=== PATIENT | male | born 1970 | race Caucasian/White ===

== ENCOUNTER 2017-03-01 07:27 | Emergency (ER) | payer OTHER ==
[2017-03-01 07:32] VITALS: RESP 16
--- NOTE | 2017-03-01 07:45 | CPEKG ---
Heart Rate: 52 RR Interval: 1154 P-R Interval: 133 QRSD Interval: 98 QT Interval: 428 QTC Interval: 398 P [place]: 75 QRS [place]: 60 T Wave [place]: 56 EKG Severity - NORMAL ECG - EKG Impression: SINUS RHYTHM Electronically Signed By: Derrell rDake 02-Mar-2017 21:55:13
--- NOTE | 2017-03-01 07:52 | EDPHY ---
HPI/HX/ROS/PE/MDM Narrative: CHIEF COMPLAINT: Chest pain HPI: This patient is a 46 year old male complaining of mild chest pain onset around midnight last night. He tossed and turned throughout the night and was unable to sleep well. His discomfort is primarily in the upper left chest. The pain is dull and waxes and wanes. It is increased with deep inspiration. It is not changed with movement. He has never had similar pain in the past. He did yoga yesterday, but otherwise cannot identify any precipitating factors and does not remember straining any of his chest muscles at that time. No personal or immediate family history of CAD or blood clots. He denies shortness of breath, fever, vomiting, abdominal pain, or other associated symptoms. REVIEW OF SYSTEMS: Aside from elements discussed in the HPI, a comprehensive 10-point review of systems was reviewed and is negative. PMH: Denies. SOCIAL HISTORY: Works in [employer]. . PCP Dr. Aquino. PHYSICAL EXAM: General:Patient is alert, in no acute distress. ENT:Eyes are normal to inspection. ENT inspection normal. Neck: Normal inspection. Full range of motion. Respiratory:No respiratory distress. Breath sounds normal bilaterally. Chest: Possible mild tenderness to left upper chest wall Cardiovascular: Regular rate and rhythm. Strong peripheral pulses. Normal cap refill. Abdomen:The abdomen is nontender to palpation. There are no peritoneal signs. There are normal bowel sounds. Back: Normal to inspection. No tenderness to palpation. Skin: Normal color. No rash. Warm and dry. Extremities: Normal appearance. Full range of motion. Neuro: Oriented x3. Normal motor function. Normal sensory function. Psych: Extremely flat affect. ED Course: 46 year old male presents with mild left upper chest pain onset around midnight , 7.5 hours prior to arrival. Exam reveals possible mild tenderness to left upper chest wall. The patient is reluctant to undergo any interventions or tests, but ultimately agreed to lab work and chest x-ray. Plan for labs including CBC, BMP, Troponin, and D-dimer. EKG shows sinus rhythm, rate 52. Troponin negative. D-dimer negative. Labs otherwise unremarkable. Chest x-ray negative for acute processes. 09:10 Reassessed patient, discussed results. Plan to discharge home in good condition. Follow up and return precautions discussed. The patient is comfortable with this plan. MDM: This patient presents to the emergency department with atypical chest pain. We performed an extensive workup here in the emergency department including troponin, D-dimer, chest x-ray and other blood work, all of which are normal. I see no evidence for thoracic aortic dissection, acute coronary syndrome, pulmonary embolus, pneumonia or pneumothorax. I had extensive discussion with the patient regarding our workup and specifically discussed that the etiology of his chest pain is unknown. I will refer him to Cardiology. He was offered admission the hospital for further observation but declines. - Data Points Imaging Results: Imaging Impressions Chest X-Ray 03/01/17 07:55 Impression: Normal. Imaging: I viewed and interpreted images myself Laboratory Results: Laboratory Results 03/01/17 08:00 03/01/17 08:00 03/01/17 03/01/17 03/01/17 08:00 08:00 08:00 WBC 7.48 10^3/uL 10^3/uL (3.80-9.50) RBC 4.66 10^6/uL 10^6/uL (4.40-6.38) Hgb 15.3 g/dL g/dL (13.7-17.5) Hct 43.2 % % (40.0-51.0) MCV 92.7 fL fL (81.5-99.8) MCH 32.8 pg pg (27.9-34.1) MCHC 35.4 g/dL g/dL (32.4-36.7) RDW 12.7 % % (11.5-15.2) Plt Count 201 10^3/uL 10^3/uL (150-400) MPV 9.2 fL fL (8.7-11.7) Neut % (Auto) 63.3 % % (39.3-74.2) Lymph % (Auto) 19.8 % % (15.0-45.0) Clarke % (Auto) 15.1 % H % (4.5-13.0) Eos % (Auto) 1.3 % % (0.6-7.6) Baso % (Auto) 0.4 % % (0.3-1.7) Nucleat RBC Rel Count 0.0 % % (0.0-0.2) Absolute Neuts (auto) 4.73 10^3/uL 10^3/uL (1.70-6.50) Absolute Lymphs (auto) 1.48 10^3/uL 10^3/uL (1.00-3.00) Absolute Monos (auto) 1.13 10^3/uL H 10^3/uL (0.30-0.80) Absolute Eos (auto) 0.10 10^3/uL 10^3/uL (0.03-0.40) Absolute Basos (auto) 0.03 10^3/uL 10^3/uL (0.02-0.10) Absolute Nucleated RBC 0.00 10^3/uL 10^3/uL (0-0.01) Immature Gran % 0.1 % % (0.0-1.1) Immature Gran # 0.01 10^3/uL 10^3/uL (0.00-0.10) D-Dimer < 0.27 ug/mLFEU ug/mLFEU (0.00-0.50) Sodium 139 mEq/L mEq/L (134-144) Potassium 4.0 mEq/L mEq/L (3.5-5.2) Chloride 101 mEq/L mEq/L (97-110) Carbon Dioxide 28 mEq/l mEq/l (22-31) Anion Gap 10 mEq/L mEq/L (8-16) BUN 12 mg/dL mg/dL (7-23) Creatinine 1.0 mg/dL mg/dL (0.7-1.3) Estimated GFR > 60 Glucose 91 mg/dL mg/dL (70-100) Calcium 8.5 mg/dL mg/dL (8.5-10.4) Troponin I < 0.012 ng/mL ng/mL (0.000-0.034) General Time Seen by Provider: 03/01/17 07:46 Initial Vital Signs: Initial Vital Signs Temperature (C) 36.6 C 03/01/17 07:28 Heart Rate 62 03/01/17 07:28 Respiratory Rate 16 03/01/17 07:28 Blood Pressure 111/75 03/01/17 07:28 O2 Sat (%) 98 03/01/17 07:28 O2 Delivery Mode Room Air Allergies/Adverse Reactions: No Known Allergies Allergy (Unverified 03/01/17 07:32) Home Medications: Medication Instructions Recorded NK [No Known Home Meds] 03/01/17 Departure - Departure Disposition: Home, Routine, Self-Care Clinical Impression: Chest pain Qualifiers: Chest pain type: other chest pain Qualified Code(s): R07.89 - Other chest pain Condition: Good Instructions: Chest Pain (ED) Additional Instructions: Follow-up with your primary doctor for symptoms unresolved in the next 2-3 days. Return to the Emergency Department for fever, chest pain, shortness of breath, increasing pain or other worsening of condition. Follow up with a philosophy faculty for further testing within one week. We have referred you to our philosophy faculty employee relations director. As we discussed, it is impossible to fully rule out heart disease as the cause of your chest pain in the emergency department. We would be happy to reevaluate you and observe you in the hospital at any time. Referrals: Delvis Aquino MD [Primary Care Provider] - As per Instructions Be Hernandez MD [Medical Doctor] - As per Instructions Report Scribed for: Ankur Gasca Report Scribed by: Kellie Ruiz Date of Report: 03/01/17 Time of Report: 08:36 Physician Review and Approval Statement: Portions of this note were transcribed by an ED scribe. I personally performed the history, physical exam, and medical decision making; and confirm the accuracy of the information in the transcribed note.
[2017-03-01 08:12] LABS: % IMMATURE GRANULYOCYTES 0.1 % (0.0-1.1); ABSOLUTE IMMATURE GRANULOCYTES 0.01 10^3/uL (0.00-0.10); ADD DIFF? NO; ADD MORPH? NO; ADD SCAN? NO; ATYPICAL LYMPHOCYTE FLAG 0 (0-99); FRAGMENT RBC FLAG 0 (0-99); HEMATOCRIT 43.2 % (40.0-51.0); HEMOGLOBIN 15.3 g/dL (13.7-17.5); LEFT SHIFT FLG 0 (0-99); LIPEMIA HEMOLYSIS FLAG 90 (0-99); MEAN CELL HEMOGLOBIN 32.8 pg (27.9-34.1); MEAN CELL HEMOGLOBIN CONCENTR. 35.4 g/dL (32.4-36.7); MEAN CELL VOLUME 92.7 fL (81.5-99.8); MEAN PLATELET VOLUME 9.2 fL (8.7-11.7); PLATELET CLUMPS FLAG 0 (0-99); PLATELET COUNT 201 10^3/uL (150-400); RED BLOOD CELL COUNT 4.66 10^6/uL (4.40-6.38); RED CELL DISTRIBUTION WIDTH 12.7 % (11.5-15.2)
[2017-03-01 08:21] LABS: ANION GAP 10 mEq/L (8-16); CALCIUM 8.5 mg/dL (8.5-10.4); CARBON DIOXIDE 28 mEq/l (22-31); CHLORIDE 101 mEq/L (97-110); GLOMERULAR FILTRATION RATE > 60; GLUCOSE 91 mg/dL (70-100); SODIUM 139 mEq/L (134-144)
[2017-03-01 08:33] LABS: TROPONIN I < 0.012 ng/mL (0.000-0.034)
[2017-03-01 09:42] VITALS: BP 143/76; PULSE 57; TEMP 98.3; O2SAT 99
== END 2017-03-01 09:42 | disposition home or self-care (01) ==
DX: R07.89 Other chest pain (principal)